=== PATIENT | male | born 1990 | race Caucasian/White ===

== ENCOUNTER → 2020-09-22 13:04 | Outpatient (BNVA) | payer OTHER, SELFPAY | PROVIDERS: PCP Internal Medicine; Visit Provider Surgery | DX: L05.91 Pilonidal cyst without abscess (principal) | CPT/HCPCS: 99202 ==

== ENCOUNTER 2020-10-11 10:03 | Day surgery (SDC) | payer OTHER, SELFPAY ==
--- NOTE | 2020-10-10 12:26 | HO.ANESPROP2 ---
Documented by User: Jacy Tabares 10/10/20 12:26 HPI - Anesthesia Eval Consult details Narrative: 30yo M for Excision of Pilonidal Cyst [facility] Active Problems Active Problems: All Active Problems (Updated 05/26/20 @ 09:34 by Dashawn Cid MD) Sacrococcygeal pilonidal cyst (Acute) Allergies (Acute) Asthma (Acute) GERD (gastroesophageal reflux disease) (Acute) Past Medical History Medical History Allergies Asthma GERD (gastroesophageal reflux disease) Sacrococcygeal pilonidal cyst Family History Family History Father Melanoma Mother Arrhythmia Pacemaker Maternal Grandfather Pancreatic cancer Maternal Grandmother Stroke Cancer Paternal Grandfather Glioblastoma Paternal Grandmother Glioblastoma Brother No problems noted. Brother No problems noted. Sister No problems noted. Sister No problems noted. Daughter No problems noted. Surgical History Surgical History History of wisdom tooth extraction Social History Social History Alcohol intake: never Smoking Status: Never smoker Advance Directives: No Advance Directives Information Provided: No Advance Directives on File: No Recently lost weight without trying: No Meds Allergies Allergy/AdvReac Type Severity Reaction Status Date / Time No Known Allergies Allergy Verified 10/05/20 14:19 Home Medications Medication Instructions Recorded Confirmed Last Taken Type omeprazole 20 mg tablet,delayed 20 mg PO DAILY 09/22/20 10/05/20 Unknown History release cetirizine 1 tab PO DAILY 10/05/20 10/05/20 Unknown History Exam Exam Date and Time: October 10, 2020 1226 Height,Weight and Vital Signs: Weight 115.978 kg Assessment and Plan Assessment Anesthesia Assessment: Chart Reviewed Documented by User: Amalia Kahn 10/11/20 10:40 [facility] Past Medical History Medical History Allergies Asthma GERD (gastroesophageal reflux disease) Sacrococcygeal pilonidal cyst Family History Family History Father Melanoma Mother Arrhythmia Pacemaker Maternal Grandfather Pancreatic cancer Maternal Grandmother Stroke Cancer Paternal Grandfather Glioblastoma Paternal Grandmother Glioblastoma Brother No problems noted. Brother No problems noted. Sister No problems noted. Sister No problems noted. Daughter No problems noted. Surgical History Surgical History History of wisdom tooth extraction Social History Social History Alcohol intake: never Smoking Status: Never smoker Advance Directives: No Advance Directives Information Provided: No Advance Directives on File: No Recently lost weight without trying: No Meds Allergies Allergy/AdvReac Type Severity Reaction Status Date / Time No Known Allergies Allergy Verified 10/05/20 14:19 Home Medications Medication Instructions Recorded Confirmed Last Taken Type omeprazole 20 mg tablet,delayed 20 mg PO DAILY 09/22/20 10/05/20 Unknown History release cetirizine 1 tab PO DAILY 10/05/20 10/05/20 Unknown History Exam Airway Mallampati Class: II TM Dist: >3cm Neck ROM: Full Assessment and Plan Assessment Anesthesia Assessment: Anesthesia Plan Discussed and Chart Reviewed Final Anesthetic Review NPO: Yes ASA Class: II Final Preanesthetic Review: No Changes in Pt Med Stat, Meds/Allgs Chart Reviewed, Consent Obtained/Reviewed and Anes Risks/Benef Reviewed Patient Risk: Low Procedure Risk: Low Assessment/Block/Sedation in SS: Assess/Block/Sedation-SS Anesthetic Plan Anesthetic Plan: GA Disposition: Standard PACU
[2020-10-11 10:08] VITALS: BMI 32.7
[2020-10-11 10:11] VITALS: BP 139/85; PULSE 102; RESP 18; TEMP 36.6; O2SAT 98
[2020-10-11] MEDS: Lactated Ringers 1,000 ML 100 ML IVCONT (10:29)
--- NOTE | 2020-10-11 10:44 | MHC.SHP ---
Pre-Procedural Eval Section B Chief Complaint: Sacrococcygeal pilonidal cyst Allergies: Allergies Allergy/AdvReac Type Severity Reaction Status Date / Time No Known Allergies Allergy Verified 10/05/20 14:19 Plan I have reviewed the history and physical and performed a pertinent physical examination on my patient. No changes have occurred unless specified.
--- NOTE | 2020-10-11 11:12 | P.OP_ITS ---
Operative Note Operative Note Date of Service: 10/11/20 Narrative: PREOP DIAGNOSIS: PILONIDAL CYST, SACROCOCCYGEAL AREA POSTOP DIAGNOSIS: THE SAME PROCEDURE: EXCISION OF PILONIDAL CYST, SACROCOCCYGEAL AREA SURGEON: JOSE ESPARZA MD MATE RELIEF: ALCIRA MEDRANO The patient is a 30-year-old male with recurrent swelling and drainage in the sacrococcygeal area. He was referred to me in the office and was noted to have an area of induration to the left of the midline on the sacrococcygeal area with midline pits. This was consistent with a pilonidal cyst. He understood the technique of excision under anesthesia. He was aware of the risks, benefits, and alternatives. He was brought to the operating room and placed in prone position on the table under general anesthesia via laryngeal mask airway. The buttocks were retracted with wide tape laterally. The sacrococcygeal area was prepped and draped in the usual sterile fashion. Again the area of induration just to the left of the midline was seen an inferior to this were note of multiple midline pits with large amounts of hair within. I marked the planned line of incision around this area of induration to include the midline pits. I infiltrated this area with lidocaine 1%. I made an incision elliptically using a blade 15. This was carried down through the full-thickness of the skin and subcutaneous fat with electrocautery. I proceeded to continue to sharply dissect with electrocautery through the deep subcutaneous layer to include all indurated areas within the specimen. I dissected posteriorly until we were able to completely deliver the diseased skin and subcutaneous tissue. This was sent as specimen. The area of excision was measured to be about 7 cm long by 4 cm wide. I undermined both sides the incision through the the deep subcutaneous tissue to allow closure without tension. The wide tapes on both sides of the buttocks were removed. I reapposed the deep subcutaneous layer with Dexon 3-0 interrupted sutures. I closed the incision with full-thickness nylon 2-0 simple interrupted sutures alternating were vertical mattress sutures. The area was then infiltrated with Marcaine 0.5% for postop analgesia. Dressings were applied and the procedure was completed. The patient tolerated the procedure well. There were no complications noted. Initial and final counts of sponges and instruments were correct. Estimated blood loss was about 5 cc. The patient was then extubated and transferred to the recovery room with stable vital signs.
--- NOTE | 2020-10-11 11:21 | P.BOP_ITS ---
Brief Operative Note Date of Service: 10/11/20 Pre-op diagnosis: sacrococcygeal pilonidal cyst Post-op diagnosis: same Procedure: excision of sacrococcygeal pilonidal cyst Surgeon: JOSE ESPARZA MD Anesthesia: IMELDA [employer] R[employer] Ice Maker: Emilia Zarco Estimated blood loss (mL): 5 Pathology: other (pilonidal cyst) Condition: stable Disposition: PACU
[2020-10-11 11:28] VITALS: BP 101/51; PULSE 83; RESP 16; TEMP 36.7; O2SAT 95
[2020-10-11 11:29] VITALS: BP 109/59; PULSE 76; RESP 16; O2SAT 96
[2020-10-11 11:35] VITALS: BP 110/56; PULSE 75; RESP 16; O2SAT 96
[2020-10-11 11:38] VITALS: BP 126/71; PULSE 83; RESP 16; O2SAT 96
[2020-10-11 12:01] VITALS: BP 118/61; PULSE 77; RESP 16; TEMP 36.6; O2SAT 97
== END 2020-10-11 12:36 | disposition home or self-care (01) ==
PROVIDERS: PCP Internal Medicine; Visit Provider Surgery
PROC: (CPT 11771; principal; 2020-10-11 11:40)
DX: L05.91 Pilonidal cyst without abscess (principal); K21.9 Gastro-esophageal reflux disease without esophagitis; J45.909 Unspecified asthma, uncomplicated; Z79.899 Other long term (current) drug therapy
CPT/HCPCS: 11771; 88304; J0690; J1100; J2250; J2405; J3010

== ENCOUNTER → 2020-10-26 09:45 | Outpatient (BNVA) | payer OTHER, SELFPAY | PROVIDERS: PCP Internal Medicine; Visit Provider Surgery | DX: Z48.817 Encounter for surgical aftercare following surgery on the skin and subcutaneous tissue (principal); Z87.2 Personal history of diseases of the skin and subcutaneous tissue | CPT/HCPCS: 99212 ==

== ENCOUNTER 2021-04-25 08:56 | Outpatient (REF) | payer OTHER, SELFPAY ==
[2021-04-25 12:38] LABS: Alanine Aminotransferase 51 U/L (0-40); Anion Gap 13 (12-20); Aspartate Amino Transferase 34 U/L (5-37); Blood Urea Nitrogen 10 mg/dL (9-16); Carbon Dioxide 26 mmol/L (22-29); Chloride 107 mmol/L (96-108); Cholesterol 222 mg/dL; Estimated Glomerular Filt Rate > 60; Glucose Fasting 102 mg/dL (60-99); HDL Cholesterol 41 mg/dL; LDL Cholesterol Calculated 117 mg/dl; Potassium 4.6 mmol/L (3.3-5.1); Sodium 141 mmol/L (135-145); Triglycerides 323 mg/dL
== END 2021-04-25 08:57 | disposition home or self-care (01) ==
LOC: HO.HMGCLDS 08:56
PROVIDERS: PCP Internal Medicine; Visit Provider Internal Medicine
DX: Z00.00 Encounter for general adult medical examination without abnormal findings (principal); I10 Essential (primary) hypertension
CPT/HCPCS: 36415; 80048; 80061; 84450; 84460